=== PATIENT | female | born 1965 | race Caucasian/White ===

== ENCOUNTER 2016-10-15 21:05 | Emergency (ER) | payer MEDICAID ==
[2016-10-15] MEDS ORDERED: PROMETHAZINE HCL 25 MG/ML AMPUL IM ONE (21:39)
[2016-10-15] MEDS ORDERED: KETOROLAC TROMETHAMINE 60 MG/2 ML VIAL IM ONE ×2 (21:39→21:41)
--- NOTE | 2016-10-15 21:40 | ERNOTE ---
Headache ER HPI - Narrative Date of Service: 10/15/16 - General Presenting Symptoms: "migraine" Time Seen by Provider: 10/15/16 21:29 Source: patient, RN notes reviewed, other - [facility] Exam Limitations: no limitations - Immun/Allergies/Home Medications Immunizations: IMMUNIZATION HX Immunizations Up to Date unknown Allergies/Adverse Reactions: Allergies No Known Allergies Allergy (Unverified 10/15/16 21:16) Home Medications: HOME MEDICATIONS Atorvastatin Calcium [Lipitor] 20 mg PO DAILY 10/15/16 [Last Taken Unknown] Fenofibrate Nanocrystallized [Tricor] 20 mg PO 10/15/16 [Last Taken Unknown] Lisinopril [Prinivil] 20 mg PO DAILY 10/15/16 [Last Taken Unknown] - History of Present Illness Narrative: 51 y/o female to ED by private vehicle for a migraine that began yesterday. She has had migraines since childhood. She has been seen routinely by neurology. She has not taken anything at home for pain. She reports that OTC medications are not effective, but Tylenol #3 and Vicodin are. She reports that she usually gets these medications in the ED at [facility], but they will no longer give these to her so she came here. She has never been seen here before. Timing of Headache: gradual, constant Context Headache: Present: new onset Severity Maximum: Present: severe Severity-Currently: Present: severe Headache frequency: Present: frequent headaches, similar to previous headache Modifying Factors - (Improves): Denies: rest, movement, immobilization, cold therapy, medication Modifying Factors - (Worsens): Reports: exposure to light Associated Symptoms: Reports: nausea. Denies: fever/chills, vomiting, sweating , nasal congestion, nasal drainage, facial pain, fatigue, weakness, numbness/ tingling, vision changes, confusion, light-headedness, dizziness, loss of consciousness, neck pain/stiffness Exacerbated by:: Reports: light, noise, movement, position Prior Treament: Reports: similar symptoms before. Denies: recently seen Review of Systems - Review of Systems Constitutional: Absent: recent illness, fever, chills EYE: Absent: eye pain, vision changes ENT: Absent: ear pain, nose congestion, sore throat Respiratory: Absent: shortness of breath, cough Cardiology: Absent: palpitations, syncope Gastrointestinal/Abdominal: Present: nausea. Absent: vomiting, abdominal pain Genitourinary: Present: no symptoms reported Musculoskeletal: Absent: neck pain, joint pain Skin: Absent: rash, lesions Neurological: Present: headache. Absent: dizziness/light-headedness, weakness, numbness Endocrine: Present: no symptoms reported Hematologic/Lymphatic: Present: no symptoms reported Psych: Present: no symptoms reported - Patient's Past Medical History Patient History - Medical: Headache, Migraines Patient History - Cardiac/Respiratory: No pertinent hx Patient History - Cancer: No Hx of Cancer Patient History - Surgical Procedures: Cholecystectomy, , Gastric Bypass, Hysterectomy Patient History - Other: None - Social History Living Situations: home Abuse History: No History of abuse Psych History: No pertinent hx Smoking Status: Former smoker Alcohol Use: none Drug Use: none - Immunizations Immunizations Up to Date: - unknown Physical Exam - Physical Exam General Appearance: Present: wd/wn, alert, no apparent distress Eye Exam: Normal inspection: bilateral, PERRL: bilateral Ears, Nose, Throat: Present: normal ENT inspection Neck: Present: normal inspection, nontender, supple, full range of motion Respiratory: Present: no respiratory distress, normal breath sounds, no accessory muscle use, lungs clear Cardiovascular/Chest: Present: regular rate, rhythm, no murmur Extremity Exam: Present: normal inspection, normal range of motion Neurological Exam: Present: alert, oriented, no motor/sensory deficits, other - depressed appearing. Absent: normal mood/affect Skin Exam: Present: normal color, warm/dry ED Progress - Vital Signs Patient's Vital Signs:: I have reviewed the patient's vital signs. Vital Signs: Vital Signs 10/15/16 21:06 Temperature 36.2 C L Pulse Rate 86 Respiratory 16 Rate Blood Pressure 157/87 O2 Sat by Pulse 100 Oximetry - Progress/Reassessment Chief Complaint: Headache Progress:: Improved Plan - Plan Plan: Informed that she will not be given narcotics. Offered IV fluid bolus along with Toradol, Reglan and Benadryl. Does not want an IV. Agrees to Toradol and Phenergan IM. Departure Clinical Impression: Migraine Qualifiers: Migraine type: unspecified Status migrainosus presence: without status migrainosus Intractability: not intractable Qualified Code(s): G43.909 - Migraine, unspecified, not intractable, without status migrainosus - Departure Disposition: Home Follow Up Needed Condition: Stable Instructions: Migraine Headache, [id number] Additional Instructions: See your doctor for further management of your headaches Referrals: Sadi Villavicencio MD [Primary Care Provider] -
--- OUTSIDE RECORDS SUMMARY | 2016-10-15 21:40 | XMS REPORT | Continuity of Care Document ---
:1965 Author Organization [facility] ([facility]) [place] [address] Phone [phone] Care Team Providers Name Role Phone Provider, No-Primary Care Primary Care Provider Unavailable Source Comments This disclosure is being made pursuant to the Care Everywhere program, applicable federal and state laws, and may not contain all informaitonavailable regarding this patient.[facility] ([facility]) Active Allergies and Adverse Reactions No Known Allergies Current Medications Prescription Sig. Disp. Refills Start Date End Date Status lisinopril 20 mg tablet Take 20 mg by mouth Active daily. atorvastatin 20 mg tablet Take 20 mg by mouth Active every evening. fenofibrate 145 mg tablet Take 145 mg by Active mouth daily. HYDROcodone-acetaminophen Take 1 tablet by Active 5-325 mg per tablet mouth every evening. Active Problems Not on file Most Recent Encounters Date Type Specialty Providers Description 10/05/2016 Office Visit Faheem Benedict DDS Chief Comp: Patient Reported Reason For Visit 10/05/2016 Office Visit Dentistry Vincent Brambila DDS Chief Comp: Patient Reported Reason For Visit 09/11/2016 Office Visit Dentistry Marlyn Cabrera Chief Comp: Patient Reported Reason For Visit 08/23/2016 Office Visit Ed Dougherty DMD Chief Comp: Patient Reported Reason For Visit 08/22/2016 Office Visit Maury Helton DDS Chief Comp: Patient Ed Prince DMD Reported Reason For Visit 08/17/2016 Office Visit Ed Dougherty DMD Chief Comp: Patient Reported Reason For Visit 08/17/2016 Office Visit Faheem Benedict DDS Chief Comp: Patient Reported Reason For Visit Social History Tobacco Use Types Packs/Day Years Used Date Never Assessed Last Filed Vital Signs Vital Sign Reading Time Taken Blood Pressure 192/100 06/26/2016 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 Pulse 61 06/26/2016 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
[2016-10-15] MEDS ORDERED: PROMETHAZINE HCL 25 MG/ML AMPUL ONE (21:41)
[2016-10-15 22:10] VITALS: BP 151/88
== END 2016-10-15 22:00 | disposition home or self-care (01) ==
LOC: ER 21:05
DX: G43.909 Migraine, unspecified, not intractable, without status migrainosus (principal)